=== PATIENT | female | born 1985 | race Caucasian/White ===

== ENCOUNTER 2017-09-12 11:12 | Emergency (ER) | payer OTHER ==
[2017-09-12] MEDS ORDERED: Bacitracin Oint 1 GM U/D Packet TOP ONE (11:31)
--- NOTE | 2017-09-12 11:56 | EDM.PDOC ---
ED HPI GENERAL MEDICAL PROBLEM - General Chief Complaint: Laceration Stated Complaint: LACERATION RIGHT LITTLE FINGER Time Seen by Provider: 09/12/17 11:25 Source of Information: Reports: Patient History Limitations: Reports: No Limitations - History of Present Illness INITIAL COMMENTS - FREE TEXT/NARRATIVE: 32-year-old female with a laceration on the palmar surface of her small finger right hand when it caught the edge of a serrated sharp edge. No other injury, no other complaints. Onset: Today Duration: Hour(s): (Within the past hour) Location: Reports: Upper Extremity, Right Severity: Mild Associated Symptoms: Reports: No Other Symptoms Right 5-Little finger Pain Score (Numeric/FACES): 3 - Related Data Allergies Allergy/AdvReac Type Severity Reaction Status Date / Time No Known Allergies Allergy Verified 09/12/17 11:27 Home Meds: Home Meds *Linzess mg PO DAILY 09/12/17 [History] Past Medical History Gastrointestinal History: Reports: Irritable Bowel Syndrome - Past Surgical History HEENT Surgical History: Reports: Tonsillectomy Female Surgical History: Reports: LEEP Musculoskeletal Surgical History: Reports: Other (See Below) Other Musculoskeletal Surgeries/Procedures:: Knee surgery Social & Family History - Tobacco Use Smoking Status *Q: Current Every Day Smoker Years of Tobacco use: 10 Packs/Tins Daily: 0.2 - Caffeine Use Caffeine Use: Reports: Coffee, Soda - Recreational Drug Use Recreational Drug Use: No ED ROS GENERAL - Review of Systems Review Of Systems: See Below Respiratory: Reports: No Symptoms Cardiovascular: Reports: No Symptoms GI/Abdominal: Reports: No Symptoms Psychiatric: Reports: Anxiety ("Doesn't like needles") ED EXAM, SKIN/RASH Exam: See Below Exam Limited By: No Limitations General Appearance: Alert, No Apparent Distress Respiratory/Chest: No Respiratory Distress Extremities: Other (Patient has a 2 cm transverse laceration across the PIP joint, palmar surface right hand small finger. Distal CMS is intact, no significant underlying structures are involved.) Course - Vital Signs Last Recorded V/S: Last Vital Signs Temp 97.0 F 09/12/17 11:22 Pulse 66 09/12/17 11:22 Resp 16 09/12/17 11:22 BP 119/74 09/12/17 11:22 Pulse Ox 99 09/12/17 11:22 - Orders/Labs/Meds Meds: Medications Discontinued Medications Generic Name Dose Route Start Last Admin Trade Name Gely PRN Reason Stop Dose Admin Bacitracin 1 dose 09/12/17 11:31 09/12/17 11:42 Bacitracin Oint 1 Gm TOP 09/12/17 11:32 1 dose ONETIME ONE Administration Lidocaine HCl 5 ml 09/12/17 11:31 09/12/17 11:42 Xylocaine-Mpf 1% INJECT 09/12/17 11:32 5 ml ONETIME ONE Administration - Re-Assessments/Exams Free Text/Narrative Re-Assessment/Exam: 09/12/17 11:55 The area was anesthetized with 1% lidocaine, 4 5-0 Ethilon sutures used to close the wound and some topical bacitracin and a Band-Aid was applied. Stitches can be removed in one week. Departure - Departure Time of Disposition: 12:10 Disposition: Home, Self-Care 01 Condition: Good Clinical Impression: Laceration of finger of right hand Qualifiers: Encounter type: initial encounter Finger: little finger Damage to nail status: without damage Foreign body presence: without foreign body Qualified Code(s): S61.216A - Laceration without foreign body of right little finger without damage to nail, initial encounter - Discharge Information Instructions: Laceration Care, Adult, [id number] Referrals: PCP,None [Primary Care Provider] - Forms: ED Department Discharge Care Plan Goals: Keep wound covered and clean while healing. Sutures can be removed in 7 days, return sooner if concerns of infection or not healing satisfactorily.
== END 2017-09-12 12:10 | disposition home or self-care (01) ==
LOC: JP.ED 11:12
DX: S61.216A Laceration without foreign body of right little finger without damage to nail, initial encounter (principal); F17.210 Nicotine dependence, cigarettes, uncomplicated; Z79.899 Other long term (current) drug therapy; W45.8XXA Other foreign body or object entering through skin, initial encounter
CPT/HCPCS: 12001; 99283-25